=== PATIENT | female | born 1990 | race Caucasian/White ===

== ENCOUNTER 2018-12-09 11:19 | Emergency (ER) | payer OTHER ==
--- NOTE | 2018-12-09 12:04 | ER Document Report ---
ED Medical Screen (RME) - General Chief Complaint: Eye Problem Stated Complaint: EYE PROBLEM Time Seen by Provider: 12/09/18 11:58 TRAVEL OUTSIDE OF THE [place] IN LAST 30 DAYS: No - HPI Notes: 12/09/18 12:02 Patient is a 28-year-old female who presents emergency department complaining of right eye being dilated that she noticed this morning. Patient states that she has never had a pupil size difference in the past. Patient has been taking allergy medicine recently for an upper respiratory infection, but no other medicines. She does wear contact lenses. Patient states that she has not had any changes in her vision, headaches, or redness in her eyes. Denies drug allergies. Denies SRIVASTAVA, fever, neck pain, URI, CP, SOB, Abd pain, or rash. I have treated and performed a rapid initial assessment of this patient. A comprehensive ED assessment and evaluation of the patient, analysis of test results and completion of medical decision making process will be conducted by additional ED providers. PHYSICAL EXAMINATION: GENERAL: Well-appearing, well-nourished and in no acute distress. A&Ox4. Answers questions appropriately. Eye: Pupil rt larger than left. The left pupil is more responsive in daylight and darkness. No injection or discharge. No obvious drooping of the eyelid b/l. EOMI. LUNGS: Breath sounds clear to auscultation bilaterally and equal. No wheezes rales or rhonchi. HEART: Regular rate and rhythm without murmurs, rubs, gallops. Extremities: No cyanosis, clubbing, or edema b/l. NEUROLOGICAL: Normal speech, normal gait. Cranial nerves otherwise grossly intact. PSYCH: Normal mood, normal affect. - Related Data Allergies/Adverse Reactions: No Known Allergies Allergy (Verified 12/09/18 11:21) Physical Exam - Vital signs Vitals: Temp Pulse Resp BP Pulse Ox 98.4 F 108 H 16 138/76 H 99 12/09/18 11:30 12/09/18 11:30 12/09/18 11:30 12/09/18 11:30 12/09/18 11:30 Course - Vital Signs Vital signs: Temp Pulse Resp BP Pulse Ox 98.4 F 108 H 16 138/76 H 99 12/09/18 11:30 12/09/18 11:30 12/09/18 11:30 12/09/18 11:30 12/09/18 11:30
--- NOTE | 2018-12-09 12:09 | ER Document Report ---
ED General - General Chief Complaint: Eye Problem Stated Complaint: EYE PROBLEM Time Seen by Provider: 12/09/18 11:58 Primary Care Provider: MO ISIDRO MD [ACTIVE STAFF] - Follow up in 3-5 days (Ophthalmology) Notes: Patient is a 28-year-old female that presents to the emergency department for chief complaint of dilated left pupil. Patient states that she noticed that her right pupil was more dilated than the left this morning. She went to urgent care, and they immediately referred her to the emergency department to be evaluated. Patient denies having any pain. Denies any changes in her vision or blurred vision. She does state though she has seasonal allergies, has been using an allergy eyedrop that included naphazoline and pheniramine, which she is been using every day for several weeks, she does wear contacts and has been putting in the eyedrops and then putting her contacts after that. Past Medical History: Seasonal allergies Past Surgical History: Laser eye surgery Social History: Denies tobacco, alcohol or drug use. Family History: Reviewed and noncontributory for presenting illness Allergies: Reviewed, see documented allergy list. REVIEW OF SYSTEMS: Other than noted above, the 12 point review of systems was reviewed with the patient and were negative, all pertinent findings are included in the HPI. PHYSICAL EXAMINATION: Vital signs reviewed, nursing noted reviewed. GENERAL: Well-appearing, well-nourished and in no acute distress. HEAD: Atraumatic, normocephalic. EYES: Eyes appear normal, sclera anicteric, conjunctiva are normal. EOMI, the right pupil has mild mydriasis, compared to the left, but is reactive to light, and accommodation. ENT: Moist mucous membranes. NECK: Normal range of motion, supple without lymphadenopathy LUNGS: Breath sounds clear to auscultation bilaterally and equal. No wheezes rales or rhonchi. HEART: Regular rate and rhythm without murmurs EXTREMITIES: Nontender, good range of motion, no pitting or edema. NEUROLOGICAL: No focal neurological deficits. Moves all extremities spontaneously Motor and sensory grossly intact on exam. PSYCH: Normal mood, normal affect. SKIN: Warm, Dry, normal turgor, no rashes or lesions noted on exposed skin TRAVEL OUTSIDE OF THE [place] IN LAST 30 DAYS: No - Related Data Allergies/Adverse Reactions: No Known Allergies Allergy (Verified 12/09/18 11:21) Past Medical History - Social History Smoking Status: Never Smoker Family History: Reviewed & Not Pertinent Physical Exam - Vital signs Vitals: Temp Pulse Resp BP Pulse Ox 98.4 F 108 H 16 138/76 H 99 12/09/18 11:30 12/09/18 11:30 12/09/18 11:30 12/09/18 11:30 12/09/18 11:30 Course - Re-evaluation Re-evalutation: Patient seen and examined, vital signs reviewed. On patient's exam, she had a non-concerning ocular exam, she had great pupillary reflex with light, and accommodation, she did have mild mydriasis on the right compared to the left, however as noted she had good pupillary constriction, on exam. Upon review of the eyedrops patient has been using, 1 of the main side effects is mydriasis, and the fact the patient is using contacts, but is likely with the patient's having prolonged exposure to that eyedrop active ingredient. Particularly the naphazoline. Patient did not have any concerning signs for neurological pupil, as she did have constriction with light, and accommodation. She did not have any pain with this either. Patient otherwise looks completely well, was laughing on exam. I advised her to discontinue these eyedrops for 3 days, to wash her contacts, and monitor for shrinking of the pupil size to normal, she is given referral to ophthalmology, she is given a prescription for a different eyedrop, although she was warned that it may cause the same effect. She was advised to use artificial tears in the interim if needed. Patient was agreeable to this plan of care, and discharged home. *Note is created using voice recognition software and may contain spelling, syntax or grammatical errors. - Vital Signs Vital signs: Temp Pulse Resp BP Pulse Ox 98.3 F 98 16 132/70 H 99 12/09/18 12:50 12/09/18 12:50 12/09/18 12:50 12/09/18 12:50 12/09/18 12:50 Discharge - Discharge Clinical Impression: Mydriasis Condition: Stable Disposition: HOME, SELF-CARE Additional Instructions: Please discontinue using your current eye drops, and I recommend stopping all eye drops for at least 3 days, then you can use Alaway eye drops once or twice daily, in general allergy eye drops can have the side effect of dilating your pupil, so this new drop may also cause this. If after 2-3 days of using no eye drops, and your pupil is not becoming smaller, please contact an ophthalmol ogist. One is listed with your paperwork. Prescriptions: Ketotifen Fumarate [Alaway] 10 ml OP Q12 PRN #1 bottle PRN Reason: itching eyes Referrals: MO ISIDRO MD [ACTIVE STAFF] - Follow up in 3-5 days (Ophthalmology)
[2018-12-09 12:52] VITALS: BP 132/70
== END 2018-12-09 12:50 | disposition home or self-care (01) ==
LOC: ER 11:19
DX: H57.04 Mydriasis (principal)
CPT/HCPCS: 99283